=== PATIENT | male | born 1955 | race Caucasian/White ===

== ENCOUNTER 2021-02-05 12:11 | Emergency (ER) | payer MEDICARE ==
[~2021-02-05] VITALS: Ht 182.9 cm; Wt 103.8 kg
--- NOTE | 2021-02-05 12:48 | NUR ---
PT PRESENTS TO ED AFTER ALLERGIC RXN FROM COD FISH, HX OF LYMPH REMOVAL IN LT UNDERARM, LT ARM REMAINS SWOLLEN FROM RXN. CONCERNED ABOUT BLOOD CLOT.
[2021-02-05 13:33] LABS: BASOPHILS % (AUTO) 1 % (0-1); EOSINOPHILS % (AUTO) 1 % (1-7); LYMPHOCYTES % (AUTO) 15 % (22-44); MEAN CORPUSCULAR HEMOGLOBIN 33.9 pg (27.5-34.5); MEAN CORPUSCULAR HGB CONC 34.6 g/dL (33.2-36.2); MEAN PLATELET VOLUME 8.7 fL (7.4-10.4); MONOCYTES % (AUTO) 13 % (2-9); NEUTROPHILS % (AUTO) 70 % (42-75); PLATELET COUNT 207 x10^3/uL (130-400); RED BLOOD COUNT 4.21 x10^6/uL (4.38-5.82)
[2021-02-05 13:43] LABS: ALBUMIN 3.2 g/dL (3.4-5.0); ANION GAP 4 mmol/L (5-15); CALCIUM 8.8 mg/dL (8.5-10.1); CHLORIDE 103 mmol/L (98-107)
[2021-02-05 14:03] LABS: ALANINE AMINOTRANSFERASE 38 U/L (12-78); ALKALINE PHOSPHATASE 43 U/L (45-117); BILIRUBIN,TOTAL 0.7 mg/dL (0.2-1.0); CREATININE 0.92 mg/dL (0.7-1.3); TOTAL PROTEIN 7.8 g/dL (6.4-8.2)
--- NOTE | 2021-02-05 14:53 | NUR ---
BEDSIDE REPORT TO ROSMERY BROWN.
--- NOTE | 2021-02-05 15:05 | NUR ---
RECEIVED REPORT FROM GERSON BOTELLO. ASSUMING CARE AT THIS TIME. PT RESTING COMFORTABLY ON GURNEY. AWAITING RESULTS.
[2021-02-05 16:49] VITALS: BP 146/96
--- NOTE | 2021-02-05 16:51 | NUR ---
Patient given discharge instructions and they have confirmed that they understand the instructions. Patient ambulatory with steady gait. NAD, all questions answered appropriately, denies additional needs at this time. No personal belongings left in room after discharge.
== END 2021-02-05 17:16 | disposition home or self-care (01) ==
LOC: ED 12:41
DX: T78.1XXA Other adverse food reactions, not elsewhere classified, initial encounter (principal)
CPT/HCPCS: 36415; 71045; 80053; 85025; 99285